=== PATIENT | male | born 1950 | race Caucasian/White ===

== ENCOUNTER 2017-11-04 13:14 | Inpatient (IN) | payer MEDICARE ==
[2017-11-04] VITALS (7 sets, daily range): BP systolic 142–179; BP diastolic 69–87; PULSE 84–90; RESP 18–20; TEMP 97–98.4; O2SAT 93–97
[~2017-11-04] VITALS: Ht 188 cm; Wt 119.8 kg
[2017-11-04] MEDS ORDERED: SODIUM CHLORIDE 0.9% FLUSH 10 ML FLUSH IVF PRN (13:30)
[2017-11-04] MEDS ORDERED: NOVOLOGMXP SQ (13:41)
[2017-11-04] MEDS ORDERED: METF1000 PO (13:41)
[2017-11-04] MEDS ORDERED: LISI-519 PO (13:41)
[2017-11-04] MEDS ORDERED: NOVOINJ2 SQ (13:41)
[2017-11-04] MEDS ORDERED: PRAV10TA PO (13:41)
[2017-11-04] MEDS ORDERED: OMEP20TA93 PO (13:41)
[2017-11-04] MEDS ORDERED: GLIM1TAB PO (13:41)
[2017-11-04 13:43] LABS: AUTOMATED NEUTROPHIL # 5.2 TH/MM3 (1.8-7.7); BASOPHIL % 0.6 % (0.0-2.0); EOSINOPHIL # 0.1 TH/MM3 (0-0.4); EOSINOPHIL % 1.4 % (0.0-4.0); HEMATOCRIT 40.8 % (39.0-51.0); HEMOGLOBIN 13.6 GM/DL (13.0-17.0); LYMPH % 24.8 % (9.0-44.0); LYMPHOCYTE # 1.9 TH/MM3 (1.0-4.8); MEAN CELL VOLUME 86.6 FL (80.0-100.0); MEAN CORPUSCULAR HGB CONC 33.5 % (32.0-36.0); MEAN PLATELET VOLUME 7.6 FL (7.0-11.0); MONO % 7.1 % (0.0-8.0); MONOCYTE # 0.6 TH/MM3 (0-0.9); NEUT % 66.1 % (16.0-70.0); PLATELET COUNT 249 TH/MM3 (150-450); RED BLOOD COUNT 4.71 MIL/MM3 (4.50-5.90); RED CELL DISTRIBUTION WIDTH 12.7 % (11.6-17.2); WHITE BLOOD COUNT 7.8 TH/MM3 (4.0-11.0)
--- NOTE | 2017-11-04 13:48 | PD ---
HPI . Left-sided weakness Chief Complaint: Neuro Symptoms/ Deficits Time Seen by Provider: 13:22 Travel History International Travel<30 days: No Contact w/Intl Traveler<30days: No Traveled to known affect area: No History of Present Illness HPI Patient presents with chief complaint of left-sided weakness. Onset was one to 2 days ago. I see noticed some arm weakness 2 days ago and left leg and facial weakness yesterday. Denies headache. He denies blurred vision. He denies any nausea. He states that he had a prostate biopsy 2 days ago and that the left arm numbness started after the biopsy. He subsequently noted left leg weakness. He attributed the weakness to a combination of diabetic neuropathy and anesthesia. Or, his symptoms have persisted so he contacted his doctor. He was instructed to come here for evaluation of possible stroke. His symptoms are mild with no modifying factors. PFSH Past Medical History Cancer: Yes (PROSTRATE) High Cholesterol: Yes Diabetes: Yes Patient Takes Glucophage: Yes GERD: Yes Hypertension: Yes Medical other: Yes (PROSTRATE BIOPSY 11/02/17) Radiation Therapy: Yes Tetanus Vaccination: Unknown Influenza Vaccination: No Past Surgical History Eye Surgery: Yes Tonsillectomy: Yes Social History Alcohol Use: No Tobacco Use: No Substance Use: No Allergies-Medications (Allergen,Severity, Reaction): Coded Allergies: No Known Allergies (Unverified , 11/04/17) Reported Meds & Prescriptions Reported Meds & Active Scripts Active Reported Pravastatin 10 Mg Tab 10 Mg PO DAILY Omeprazole 20 Mg Tab 20 Mg PO DAILY Lisinopril 5 Mg Tab 5 Mg PO DAILY Glimepiride 1 Mg Tab 1 Mg PO DAILY Take with breakfast or first main meal Novolog Mix 70-30 Inj (Insulin Aspart Prota 70%/Aspart 30%) 1,000 Unit/10 Ml Vial 36 Units SQ BID Metformin (Metformin HCl) 1,000 Mg Tab 1,000 Mg PO BIDPC Review of Systems Except as stated in HPI: all other systems reviewed are Neg Eyes: No: Blurred Vision HENT: No: Headaches Cardiovascular: No: Chest Pain or Discomfort Gastrointestinal: No: Nausea, Vomiting Neurologic: Positive: Weakness, Focal Abnormalities, Paresthesia, No: Coordination Problem, Headache, Change in Mentation, Slurred Speech Physical Exam Narrative GENERAL: Awake and alert and in no acute distress. SKIN: warm/dry. Normal color and turgor. HEAD: Normocephalic. Atraumatic. EYES: Pupils equal and round. No scleral icterus. No injection or drainage. ENT: No nasal bleeding or discharge. Mucous membranes pink and moist. NECK: Trachea midline. Full range of motion without pain.. CARDIOVASCULAR: Irregular rhythm, normal rate he has a sinus arrhythmia on the monitor. RESPIRATORY: No accessory muscle use. Clear to auscultation. Breath sounds equal bilaterally. GASTROINTESTINAL: Abdomen soft. Nontender. Bowel sounds present. Nondistended. MUSCULOSKELETAL: No obvious deformities. NEUROLOGICAL: Awake and alert. No obvious cranial nerve deficits. No weakness on wrinkling his brow, closing his eyes, protruding his tongue or smiling. Designer strengths are full and equal. Pronator drift is negative. He is able to lift both legs against gravity and pressure. Strength appears equal. Babinski is negative bilaterally. Normal speech. PSYCHIATRIC: Appropriate mood and affect; insight and judgment normal. Data Data Last Documented VS Vital Signs Date Time Temp Pulse Resp B/P (MAP) Pulse Ox O2 Delivery O2 Flow Rate FiO2 11/04/17 14:11 88 18 174/86 (115) 96 Room Air 11/04/17 13:23 98.4 Orders Orders Electrocardiogram (11/04/17 13:23) Prothrombin Time / Inr (Pt) (11/04/17 13:23) Act Partial Throm Time (Ptt) (11/04/17 13:23) Complete Blood Count With Diff (11/04/17 13:23) Basic Metabolic Panel (Bmp) (11/04/17 13:23) Troponin I (11/04/17 13:23) Ct Brain W/O Iv Contrast(Rout) (11/04/17 13:23) Chest, Single Ap (11/04/17 13:23) Ecg Monitoring (11/04/17 13:23) Iv Access Insert/Monitor (11/04/17 13:23) Oximetry (11/04/17 13:23) Sodium Chloride 0.9% Flush (Ns Flush) (11/04/17 13:30) Aspirin Chew (Aspirin Chew) (11/04/17 14:15) Mri Brain W&W/O Contrast (11/04/17 14:05) Mra Carotids W Contrast (11/04/17 14:05) Admit Order (Ed Use Only) (11/04/17 ) Manager [employer] / Telemetry DESIREE.Q8H (11/04/17 14:36) Vital Signs (Adult) Q4H (11/04/17 14:36) Diet Heart Healthy (11/04/17 Dinner) Activity Oob With Assistance (11/04/17 14:36) Notify Dr: Other (11/04/17 14:36) Labs Laboratory Tests Test 11/04/17 13:30 White Blood Count 7.8 TH/MM3 Red Blood Count 4.71 MIL/MM3 Hemoglobin 13.6 GM/DL Hematocrit 40.8 % Mean Corpuscular Volume 86.6 FL Mean Corpuscular Hemoglobin 29.0 PG Mean Corpuscular Hemoglobin Concent 33.5 % Red Cell Distribution Width 12.7 % Platelet Count 249 TH/MM3 Mean Platelet Volume 7.6 FL Neutrophils (%) (Auto) 66.1 % Lymphocytes (%) (Auto) 24.8 % Monocytes (%) (Auto) 7.1 % Eosinophils (%) (Auto) 1.4 % Basophils (%) (Auto) 0.6 % Neutrophils # (Auto) 5.2 TH/MM3 Lymphocytes # (Auto) 1.9 TH/MM3 Monocytes # (Auto) 0.6 TH/MM3 Eosinophils # (Auto) 0.1 TH/MM3 Basophils # (Auto) 0.0 TH/MM3 CBC Comment DIFF FINAL Differential Comment Prothrombin Time 10.0 SEC Prothromb Time International Ratio 1.0 RATIO Activated Partial Thromboplast Time 31.4 SEC Blood Urea Nitrogen 10 MG/DL Creatinine 0.97 MG/DL Random Glucose 189 MG/DL Calcium Level 8.7 MG/DL Sodium Level 138 MEQ/L Potassium Level 4.9 MEQ/L Chloride Level 102 MEQ/L Carbon Dioxide Level 30.5 MEQ/L Anion Gap 6 MEQ/L Estimat Glomerular Filtration Rate 77 ML/MIN Troponin I LESS THAN 0.02 NG/ML MDM Medical Decision Making Medical Screen Exam Complete: Yes Emergency Medical Condition: Yes Differential Diagnosis Differential diagnosis includes but is not limited to TIA, CVA, brain tumor, migraine, anxiety Narrative Course This patient presents with strokelike symptoms but no demonstrable neurological findings. His symptoms started 2 days ago. CBC & BMP Diagram 11/04/17 13:30 Calcium Level 8.7 Coags are normal. Trop < 0.[address] 2/16/18 1323 Signed Impressions: Service Date/Time: Saturday, November 04, 2017 13:42 - CONCLUSION: 1. No acute intracranial abnormality. Augustin Lehman MD Chest X-Ray 11/04/171322 Signed Impressions: Service Date/Time: Saturday, November 04, 2017 13:33 - CONCLUSION: No acute disease. Alexi Alarcon MD FACR I have ordered aspirin. I have ordered an MRI/MRA of the brain and an MRA carotid arteries. He will need to be admitted for further evaluation and neurological consultation and echocardiogram. Critical Care Narrative Aggregate critical care time was 35 minutes. Time to perform other separately billable procedures was not included in the critical care time. My time did not include minutes spent treating any other patients simultaneously or on activities that did not directly contribute to the patient's treatment. The services I provided to this patient were to treat and/or prevent clinically significant deterioration due to strokelike symptoms I provided critical care services requiring my management, as noted below: Chart data review, documentation time, medication orders and management, vital sign assessments/reviewing monitor data, ordering and reviewing lab tests, ordering and interpreting/reviewing x-rays and diagnostic studies, care of the patient and discussion of the patient with the admitting physicians Diagnosis Primary Impression: Stroke-like symptom Admitting Information Admitting Physician Requests: Admit Condition: Stable Donna Ramirez MD Nov 04, 2017 13:48
--- NOTE | 2017-11-04 13:50 | RADRPT ---
EXAM DATE/TIME: 11/04/2017 13:33 [facility] COMPARISON: No previous studies available for comparison. INDICATIONS : Stroke symptoms. MEDICAL HISTORY : None. SURGICAL HISTORY : None. ENCOUNTER: Initial ACUITY: 1 day PAIN SCORE: 0/10 LOCATION: Bilateral chest FINDINGS: A single view of the chest demonstrates the lungs to be symmetrically aerated without evidence of mas s, infiltrate or effusion. The cardiomediastinal contours are unremarkable. Osseous structures are intact. CONCLUSION: No acute disease. Alexi Alarcon MD FACR on November 04, 2017 at 13:49 Board Certified Radiologist. This report was verified electronically.
[2017-11-04 13:52] LABS: CHLORIDE 102 MEQ/L (98-107); SODIUM (NA) 138 MEQ/L (136-145)
[2017-11-04 13:55] LABS: CALCIUM 8.7 MG/DL (8.5-10.1)
[2017-11-04 13:56] LABS: BICARBONATE 30.5 MEQ/L (21.0-32.0); BLOOD UREA NITROGEN 10 MG/DL (7-18); GLUCOSE,RANDOM 189 MG/DL (74-106)
--- NOTE | 2017-11-04 13:56 | RADRPT ---
EXAM DATE/TIME: 11/04/2017 13:42 [facility] COMPARISON: No previous studies available for comparison. INDICATIONS : Left facial droop. Left arm tingling and numbness. Evaluate for cerebrovascular accident. RADIATION DOSE: 61.29 CTDIvol (mGy) MEDICAL HISTORY : None SURGICAL HISTORY : None. ENCOUNTER: Initial ACUITY: 2 days PAIN SCALE: 0/10 LOCATION: cranial TECHNIQUE: Multiple contiguous axial images were obtained of the head. Using automated exposure control and adj ustment of the mA and/or kV according to patient size, radiation dose was kept as low as reasonably a chievable to obtain optimal diagnostic quality images. DICOM format image data is available electro nically for review and comparison. FINDINGS: CEREBRUM: Mild diffuse cerebral volume loss. The ventricles are normal for age. No evidence of midline shift, mass lesion, hemorrhage or acute infarction. No extra-axial fluid collections are seen. POSTERIOR FOSSA: The cerebellum and brainstem are intact. The 4th ventricle is midline. The cerebellopontine angle i s unremarkable. EXTRACRANIAL: The visualized portion of the orbits is intact. Atrophic right globe with calcifications in the anter ior and posterior chambers. SKULL: The calvaria is intact. No evidence of skull fracture. CONCLUSION: 1. No acute intracranial abnormality. Augustin Lehman MD on November 04, 2017 at 13:52 Board Certified Radiologist. This report was verified electronically.
[2017-11-04 14:00] LABS: CREATININE 0.97 MG/DL (0.60-1.30); GLOMERULAR FILTRATION RATE 77 ML/MIN (>89)
[2017-11-04 14:04] LABS: TROPONIN I LESS THAN 0.02 NG/ML (0.02-0.05)
[2017-11-04] MEDS ORDERED: ASPIRIN 81 MG CHEW TAB CHEW ONE (14:15)
[2017-11-04] MEDS ORDERED: GADODIAMIDE PF 287 MG/ML 20 ML VIAL (for RAD MRI) IVCONTRAST ONE (14:39)
[2017-11-04] MEDS ORDERED: ACETAMINOPHEN 325 MG TAB PO PRN (14:45)
[2017-11-04] MEDS ORDERED: SENNOSIDES 8.6 MG TAB PO PRN (14:45)
[2017-11-04] MEDS ORDERED: ONDANSETRON HCL 4 MG/2 ML VIAL IVP PRN (14:45)
[2017-11-04] MEDS ORDERED: LORazepam 2 MG/ML VIAL IV PUSH SCH (14:45)
[2017-11-04] MEDS ORDERED: NALOXONE HCL 0.4 MG/ML AMP IV PUSH PRN (14:45)
[2017-11-04] MEDS ORDERED: SODIUM CHLORIDE 0.9% FLUSH 10 ML FLUSH IV FLUSH PRN (14:45)
[2017-11-04] MEDS ORDERED: DEXTROSE 50% IN WATER 50 ML VIAL(D50) IV PUSH PRN (15:45)
[2017-11-04] MEDS ORDERED: GLUCAGON 1 MG/ML VIAL OTHER PRN (15:45)
--- NOTE | 2017-11-04 16:03 | RADRPT ---
EXAM DATE/TIME: 11/04/2017 15:27 [facility] COMPARISON: No previous studies available for comparison. INDICATIONS : Left sided weakness. MEDICAL HISTORY : Carcinoma, prostate. Diabetes mellitus type 2. SURGICAL HISTORY : Tonsillectomy. ENCOUNTER: Initial ACUITY: 1 day PAIN SCORE: 0/10 LOCATION: cranial Please note a normal MRA of the brain does not entirely exclude the possibility of a small aneurysm, nor the possibility of distal intracranial vessel disease. TECHNIQUE: 3D time of flight MRA was performed. Source images, multiplanar STS MIP, and 3D volume MIP reconstru ctions were reviewed. FINDINGS: Anterior circulation: Distal intracranial internal carotid arteries are patent with flow extending to the middle and anteri or cerebral arteries. Small caliber right A1 segment. There is no evidence for aneurysm, vessel trunc ation or stenosis, and no evidence for vascular malformation. Posterior circulation: Symmetric distal vertebral arteries with flow extending to basilar artery. Right posterior cerebral a rtery is not visualized beyond the origin. Also, a short segment of the left mid to distal [employer] is not visualized. There is no evidence for aneurysm and no evidence for vascular malformation. CONCLUSION: 1. Apparent occlusion of the right [employer] just beyond the origin. 2. Focal nonvisualization of the mid to distal left [employer]. This may be artifactual although a focal sev ere flow-limiting stenosis or less likely occlusion cannot be entirely excluded. 3. Hypoplastic right A1 segment. Otherwise, no significant flow-limiting stenosis or occlusion of the anterior circulation. 4. Consider CTA examination for better evaluation as clinically warranted. Augustin Lehman MD on November 04, 2017 at 15:56 Board Certified Radiologist. This report was verified electronically.
--- NOTE | 2017-11-04 16:44 | RADRPT ---
EXAM DATE/TIME: 11/04/2017 15:27 [facility] COMPARISON: No previous studies available for comparison. INDICATIONS : Left sided weakness. CONTRAST: 20 cc Omniscan (gadodiamide) IV MEDICAL HISTORY : Carcinoma, prostate. Diabetes mellitus type 2. SURGICAL HISTORY : Tonsillectomy. ENCOUNTER: Initial ACUITY: 1 day PAIN SCORE: 0/10 LOCATION: cranial TECHNIQUE: Multiplanar, multisequence MRI of the brain was performed both prior to and following the administrat ion of paramagnetic contrast. FINDINGS: CEREBRUM: The ventricles are normal for age. No evidence of midline shift, mass lesion, hemorrhage or acute in farction. No extraaxial fluid collections are seen. The pituitary gland and suprasellar cistern are normal in configuration. WHITE MATTER: Moderately severe periventricular and scattered deep white matter tract there is increased T2 flair s ignal intensity. POSTERIOR FOSSA: The cerebellum and brainstem are intact. The 4th ventricle is midline. The cerebellopontine angle is unremarkable. The cerebellar tonsils are normal in position. DIFFUSION IMAGING: There are 2 punctate areas of diffusion restriction identified in the medial aspect of the right temp oral lobe and a similar lesion identified centrally in the right occiput. These appear to be decrease d in signal intensity on the ADC maps. EXTRACRANIAL: The visualized portions of the orbits and paranasal sinuses are unremarkable. POST-CONTRAST: No abnormal areas of parenchymal or dural enhancement. No evidence of blood-brain barrier breakdown. CONCLUSION: 1. Moderately severe periventricular and deep white matter tract small vessel ischemic evaluation. 2. In addition, there are 2 punctate areas of true diffusion restriction in the white matter tracts o f the right temporal lobe and right occiput. Findings are characteristic of acute or subacute white m atter infarcts. This may explain current clinical symptoms. Trenton Miller MD on November 04, 2017 at 16:31 Board Certified Radiologist. This report was verified electronically.
--- NOTE | 2017-11-04 16:47 | RADRPT ---
EXAM DATE/TIME: 11/04/2017 15:27 [facility] COMPARISON: No previous studies available for comparison. INDICATIONS : Left sided weakness. CONTRAST: 20 cc Omniscan (gadodiamide) IV MEDICAL HISTORY : Carcinoma, prostate. Diabetes mellitus type 2. SURGICAL HISTORY : Tonsillectomy. ENCOUNTER: Initial ACUITY: 1 day PAIN SCORE: 0/10 LOCATION: neck Percent stenosis is calculated using the diameter of the stenotic region over the diameter of the nor mal distal internal carotid artery. TECHNIQUE: Bolus infused MRA of the extracranial circulation was performed using a neurovascular coil. Post pro cessing was performed including rotating subvolume maximum intensity projections of each carotid ganesh ry, rotating full volume maximum intensity projections of both carotid arteries, sagittal and coronal sliding thin slab reformations of each carotid artery, and left oblique sliding thin slab reformatio n through the aortic arch to include the origin of the arch branch vessels. FINDINGS: AORTIC ARCH: There is a three vessel origin of the great vessels from the aorta. No evidence of ostial narrowing. RIGHT CAROTID: Exam is limited by motion. There is no evidence for hemodynamically significant carotid stenosis. LEFT CAROTID: Limited by motion again no evidence for significant stenosis. VERTEBRALS: Both vertebral arteries are patent. CONCLUSION: Limited by motion, negative for hemodynamically significant carotid stenosis. Alexi Alarcon MD FACR on November 04, 2017 at 16:45 Board Certified Radiologist. This report was verified electronically.
[2017-11-04] MEDS: INSULIN ASPART SUPPLEMENTAL SCALE SQ SCH ×2 (17:00→21:50)
--- NOTE | 2017-11-04 17:19 | HHI.HP ---
[facility] Silvio Zimmer, DO Admission Diagnosis stroke-like symptoms Diagnoses: Chief Complaint: Left hand numbness and trouble walking Travel History International Travel<30 Days: No Contact w/Intl Traveler <30 Da: No Traveled to Known Affected Are: No History of Present Illness This patient is a 67-year-old gentleman with a history of diabetes and hypertension who noticed 2 days ago his left arm and his face became numb post prostate biopsy. Patient says after anesthesia he woke up numb and thought it would wear off and didn't he came to the hospital today. He came and was found to have no obvious cranial nerve defects, his right eye is sclerotic from a childhood accident. Muscle strength is about 4 out of 5 on the left side and he says that maybe normal due to his neuropathy. He had some Ativan for his MRI and had some slurring speech after that his says prior to the Ativan he had no trouble speaking. His images have been done and there appears to be a subacute infarct on his MRI in the right occiput and right temporal lobe Review of Systems Constitutional: DENIES: Diaphoretic episodes, Fatigue, Fever, Weight gain, Weight loss, Chills, Dizziness, Change in appetite, Night Sweats Endocrine: DENIES: Heat/cold intolerance, Polydipsia, Polyuria, Polyphagia Eyes: DENIES: Blurred vision, Diplopia, Eye inflammation, Eye pain, Vision loss , Photosensitivity, Double Vision Ears, nose, mouth, throat: DENIES: Tinnitus, Hearing loss, Vertigo, Nasal discharge, Oral lesions, Throat pain, Hoarseness, Ear Pain, Running Nose, Epistaxis, Sinus Pain, Toothache, Odynophagia Respiratory: DENIES: Apneas, Cough, Snoring, Wheezing, Hemoptysis, Sputum production, Shortness of breath Cardiovascular: DENIES: Chest pain, Palpitations, Syncope, Dyspnea on Exertion , PND, Lower Extremity Edema, Orthopnea, Claudication Gastrointestinal: DENIES: Abdominal pain, Black stools, Bloody stools, Constipation, Diarrhea, Nausea, Vomiting, Difficulty Swallowing, Anorexia Genitourinary: DENIES: Sexual dysfunction, Urinary frequency, Urinary incontinence, Urgency, Hematuria, Dysuria, Nocturia, Penile Discharge, Testicular Pain, Testicular Swelling Musculoskeletal: DENIES: Joint pain, Muscle aches, Stiffness, Joint Swelling, Back pain, Neck pain Integumentary: DENIES: Abnormal pigmentation, Nail changes, Pruritus, Rash Hematologic/lymphatic: DENIES: Bruising, Lymphadenopathy Immunologic/allergic: DENIES: Eczema, Urticaria Neurologic: COMPLAINS OF: Localized weakness, Paresthesias, DENIES: Abnormal gait, Headache, Seizures, Speech Problems, Tremor, Poor Balance Except as stated in HPI: all other systems reviewed are Neg Past Family Social History Past Medical History Diabetes, hypertension, GERD, hyperlipidemia Sleep apnea Past Surgical History Prostate biopsy, eye surgery, tonsillectomy Reported Medications Reviewed in the EMR Allergies: Coded Allergies: No Known Allergies (Unverified , 11/04/17) Active Ordered Medications Reviewed in the EMR Family History Mother had a stroke in her 70s, father of heart failure in his 80s, brother is alive and well Social History Remote tobacco, no alcohol , retired airline industry Physical Exam Vital Signs Vital Signs Date Time Temp Pulse Resp B/P (MAP) Pulse Ox O2 Delivery O2 Flow Rate FiO2 11/04/17 15:17 11/04/17 14:11 88 18 174/86 (115) 96 Room Air 11/04/17 13:28 92 97 11/04/17 13:27 97 Room Air 11/04/17 13:23 98.4 90 18 179/87 (117) 96 Physical Exam GENERAL: This is a well-nourished, well-developed patient, in no apparent distress. SKIN: No rashes, ecchymoses or lesions. Cool and dry. HEAD: Atraumatic. Normocephalic. No temporal or scalp tenderness. EYES: Right eye sclerotic status post childhood injury. Left eye Extraocular motions intact. No scleral icterus. No injection or drainage. ENT: Nose without bleeding, purulent drainage or septal hematoma. Throat without erythema, tonsillar hypertrophy or exudate. Uvula midline. Airway patent. NECK: Trachea midline. No JVD or lymphadenopathy. Supple, nontender, no meningeal signs. CARDIOVASCULAR: Regular rate and rhythm without murmurs, gallops, or rubs. RESPIRATORY: Clear to auscultation. Breath sounds equal bilaterally. No wheezes , rales, or rhonchi. GASTROINTESTINAL: Abdomen soft, non-tender, nondistended. No hepato-splenomegaly , or palpable masses. No guarding. MUSCULOSKELETAL: Extremities without clubbing, cyanosis, or edema. No joint tenderness, effusion, or edema noted. No calf tenderness. Negative Homans sign bilaterally. NEUROLOGICAL: Awake and alert. Cranial nerves II through XII intact. Motor and sensory grossly within normal limits. 4 out of 5 left leg muscle strength, left arm muscle strength otherwise 5 out of 5 right. Normal speech. Laboratory Laboratory Tests Test 11/04/17 13:30 White Blood Count 7.8 Red Blood Count 4.71 Hemoglobin 13.6 Hematocrit 40.8 Mean Corpuscular Volume 86.6 Mean Corpuscular Hemoglobin 29.0 Mean Corpuscular Hemoglobin Concent 33.5 Red Cell Distribution Width 12.7 Platelet Count 249 Mean Platelet Volume 7.6 Neutrophils (%) (Auto) 66.1 Lymphocytes (%) (Auto) 24.8 Monocytes (%) (Auto) 7.1 Eosinophils (%) (Auto) 1.4 Basophils (%) (Auto) 0.6 Neutrophils # (Auto) 5.2 Lymphocytes # (Auto) 1.9 Monocytes # (Auto) 0.6 Eosinophils # (Auto) 0.1 Basophils # (Auto) 0.0 CBC Comment DIFF FINAL Differential Comment Prothrombin Time 10.0 Prothromb Time International Ratio 1.0 Activated Partial Thromboplast Time 31.4 Blood Urea Nitrogen 10 Creatinine 0.97 Random Glucose 189 Calcium Level 8.7 Sodium Level 138 Potassium Level 4.9 Chloride Level 102 Carbon Dioxide Level 30.5 Anion Gap 6 Estimat Glomerular Filtration Rate 77 Troponin I LESS THAN 0.02 Result Diagram: 11/04/17 1330 11/04/17 1330 Imaging Last Impressions Head Magnetic Resonance Angiography 11/04/17 1442 Signed Impressions: Service Date/Time: Saturday, November 04, 2017 15:27 - CONCLUSION: 1. Apparent occlusion of the right UNIX ARCHITECT just beyond the origin. 2. Focal nonvisualization of the mid to distal left UNIX ARCHITECT. This may be artifactual although a focal severe flow-limiting stenosis or less likely occlusion cannot be entirely excluded. 3. Hypoplastic right A1 segment. Otherwise, no significant flow-limiting stenosis or occlusion of the anterior circulation. 4. Consider CTA examination for better evaluation as clinically warranted. Augustin Lehman MD Neck Magnetic Resonance Angiography 11/04/17 1405 Signed Impressions: Service Date/Time: Saturday, November 04, 2017 15:27 - CONCLUSION: Limited by motion, negative for hemodynamically significant carotid stenosis. Alexi Alarcon MD FACR Brain MRI 11/04/17 1405 Signed Impressions: Service Date/Time: Saturday, November 04, 2017 15:27 - CONCLUSION: 1. Moderately severe periventricular and deep white matter tract small vessel ischemic evaluation. 2. In addition, there are 2 punctate areas of true diffusion restriction in the white matter tracts of the right temporal lobe and right occiput. Findings are characteristic of acute or subacute white matter infarcts. This may explain current clinical symptoms. Trenton Miller MD Head CT 11/04/17 0401 Signed Impressions: Service Date/Time: Saturday, November 04, 2017 13:42 - CONCLUSION: 1. No acute intracranial abnormality. Augustin Lehman MD Chest X-Ray 11/04/171322 Signed Impressions: Service Date/Time: Saturday, November 04, 2017 13:33 - CONCLUSION: No acute disease. Alexi Alarcon MD FACR Septic Shock Reassessment Septic shock perfusion: reassessment completed Caprini VTE Risk Assessment Caprini VTE Risk Assessment: Mod/High Risk (score >= 2) Caprini Risk Assessment Model Point Value = 1 Point Value = 2 Point Value = 3 Point Value = 5 Age 41-60 Minor surgery BMI > 25 kg/m2 Swollen legs Varicose veins or History of unexplained or recurrent spontaneous Oral contraceptives or hormone replacement Sepsis (< 1 month) Serious lung disease, including pneumonia (< 1 month) Abnormal pulmonary function Acute myocardial infarction Congestive heart failure (< 1 month) History of inflammatory bowel disease Medical patient at bed rest Age 61-74 Arthroscopic surgery Major open surgery (> 45 min) Laparoscopic surgery (> 45 min) Malignancy Confined to bed (> 72 hours) Immobilizing plaster cast Central venous access Age >= 75 History of VTE Family history of VTE Factor V Leiden Prothrombin [id number] Lupus anticoagulant Anticardiolipin antibodies Elevated serum homocysteine Heparin-induced thrombocytopenia Other congenital or acquired thrombophilia Stroke (< 1 month) Elective arthroplasty Hip, pelvis, or leg fracture Acute spinal cord injury (< 1 month) Prophylaxis Regimen Total Risk Factor Score Risk Level Prophylaxis Regimen 0-1 Low Early ambulation 2 Moderate Order ONE of the following: *Sequential Compression Device (SCD) *Heparin 5000 units SQ BID 3-4 Higher Order ONE of the following medications: *Heparin 5000 units SQ TID *Enoxaparin/Lovenox 40 mg SQ daily (WT < 150 kg, CrCl > 30 mL/min) *Enoxaparin/Lovenox 30 mg SQ daily (WT < 150 kg, CrCl > 10-29 mL/min) *Enoxaparin/Lovenox 30 mg SQ BID (WT < 150 kg, CrCl > 30 mL/min) AND/OR *Sequential Compression Device (SCD) 5 or more Highest Order ONE of the following medications: *Heparin 5000 units SQ TID (Preferred with Epidurals) *Enoxaparin/Lovenox 40 mg SQ daily (WT < 150 kg, CrCl > 30 mL/min) *Enoxaparin/Lovenox 30 mg SQ daily (WT < 150 kg, CrCl > 10-29 mL/min) *Enoxaparin/Lovenox 30 mg SQ BID (WT < 150 kg, CrCl > 30 mL/min) AND *Sequential Compression Device (SCD) Assessment and Plan Problem List: (1) Stroke-like symptom ICD Code: R29.90 - Unspecified symptoms and signs involving the nervous system Status: Acute Plan: Patient appears to have acute right sided infarct Continue with atorvastatin, follow up with neurology (2) DM2 (diabetes mellitus, type 2) ICD Code: E11.9 - Type 2 diabetes mellitus without complications Plan: Continue with diabetic diet, insulin per sliding scale and home regimen Metformin held (3) HTN (hypertension) ICD Code: I10 - Essential (primary) hypertension Plan: Currently controlled, continue patient's lisinopril Code Status full code Nanette Bermudez MD Nov 04, 2017 17:19
[2017-11-04] MEDS: RESP: ALBUTEROL 2.5 MG/IPRATROPIUM 0.5 MG NEB (SCH) NEB (20:20)
[2017-11-04] MEDS: SODIUM CHLORIDE 0.9% FLUSH 10 ML FLUSH IV FLUSH SCH (21:52)
[2017-11-04] MEDS: INSULIN ASPAR PROT 70/30 1,000 UNITS/10 ML VIAL SQ SCH (22:19)
[2017-11-05] VITALS: BP 130/58; PULSE 75; RESP 20; TEMP 97.8; O2SAT 94
[2017-11-05 04:00] VITALS: BP 134/89; PULSE 79; RESP 20; TEMP 96.2; O2SAT 94
[2017-11-05] MEDS: RESP: ALBUTEROL 2.5 MG/IPRATROPIUM 0.5 MG NEB (SCH) NEB ×2 (07:48→14:47)
[2017-11-05] MEDS: INSULIN ASPART SUPPLEMENTAL SCALE SQ SCH (07:54)
[2017-11-05] MEDS ORDERED: GLIMEPIRIDE 1 MG TAB PO SCH (08:00)
[2017-11-05] MEDS: SODIUM CHLORIDE 0.9% FLUSH 10 ML FLUSH IV FLUSH SCH (08:36)
[2017-11-05] MEDS: INSULIN ASPAR PROT 70/30 1,000 UNITS/10 ML VIAL SQ SCH (08:53)
[2017-11-05] MEDS ORDERED: CIPR250T2 PO (08:57)
[2017-11-05] MEDS ORDERED: CLOPIDOGREL 75 MG TAB PO SCH (09:00)
[2017-11-05] MEDS ORDERED: SODIUM CHLORIDE 0.9% FLUSH 10 ML FLUSH IV FLUSH PRN (09:00)
[2017-11-05] MEDS ORDERED: SODIUM CHLORIDE 0.9% FLUSH 10 ML FLUSH IV FLUSH SCH (09:00)
[2017-11-05] MEDS ORDERED: PANTOPRAZOLE SOD 20 MG DELAYED RELEASE TAB PO SCH (09:00)
[2017-11-05] MEDS ORDERED: LISINOPRIL 5 MG TAB PO SCH (09:00)
[2017-11-05] MEDS ORDERED: DEXTROSE 50% IN WATER 50 ML VIAL(D50) IV PUSH PRN (09:00)
[2017-11-05] MEDS ORDERED: GLUCAGON 1 MG/ML VIAL OTHER PRN (09:00)
[2017-11-05] MEDS ORDERED: ASPIRIN 325 MG TAB PO SCH ×2 (09:00→09:15)
[2017-11-05] MEDS ORDERED: CIPROFLOXACIN 250 MG TAB PO SCH (09:15)
[2017-11-05 09:30] VITALS: BP 183/96; PULSE 92; RESP 16; TEMP 97.4; O2SAT 93
[2017-11-05] MEDS ORDERED: IOHEXOL 350 MG/ML 10 ML VIAL (for RAD DIAG) IVCONTRAST ONE (09:45)
[2017-11-05] MEDS ORDERED: PNEUMOCOCCAL POLYVALENT INJ 25 MCG/0.5 ML SYR IM ONE (10:00)
[2017-11-05] MEDS ORDERED: INFLUENZA VIRUS VACCINE (QUADRIVALENT) 0.5 ML SYR IM ONE (10:00)
--- NOTE | 2017-11-05 10:18 | RADRPT ---
EXAM DATE/TIME: 11/05/2017 09:26 [facility] COMPARISON: MRA BRAIN W/O CONTRAST, November 04, 2017, 15:27. INDICATIONS : CVA, rule out basilar artery thrombosis. IV CONTRAST: 75 cc Omnipaque 350 (iohexol) IV ; Cumulative dose for multiple exams. RADIATION DOSE: 42.26 CTDIvol (mGy) ; Combined studies MEDICAL HISTORY : Hypertension. Diabetes mellitus type 2. Carcinoma, prostate. SURGICAL HISTORY : None. ENCOUNTER: Initial ACUITY: 1 day PAIN SCALE: 0/10 LOCATION: cranial TECHNIQUE: Volumetric scanning was performed using a multi-row detector CT scanner. The data was post processed with a variety of visualization algorithms including full volume maximum intensity projection, multi -planar sliding thin slab reformation, curved planar reformation, and surface rendering techniques. Using automated exposure control and adjustment of the mA and/or kV according to patient size, radiat ion dose was kept as low as reasonably achievable to obtain optimal diagnostic quality images. DICO M format image data is available electronically for review and comparison. FINDINGS: There is good visualization of the major intracranial arteries out to the second-order branch vessels . There is no evidence for aneurysm. The A1 and M1 segments are patent bilaterally. There is good vi sualization of the anterior most rib vessels which are patent. The basilar artery is patent throughou t its extent. There appear to be some small focal areas of narrowing and/or stenosis involving the pr oximal to mid right posterior cerebral artery. However the right posterior cerebral artery appears to be patent. There is mild irregularity without stenosis involving the left posterior cerebral artery. No evidence of AV malformation.. CONCLUSION: 1. There is some mild focal areas of narrowing/stenosis involving the proximal to mid right posterior cerebral artery. The right posterior cerebral artery is patent. 2. There is some irregularity involving the left posterior cerebral artery suggestive of atherosclero tic changes. The left posterior cervical artery is patent. 3. The basilar artery is patent. 4. No focal occlusion is seen. Jc Wyman MD on November 05, 2017 at 10:11 Board Certified Radiologist. This report was verified electronically.
--- NOTE | 2017-11-05 10:40 | RADRPT ---
EXAM DATE/TIME: 11/05/2017 09:26 [facility] COMPARISON: No previous studies available for comparison. INDICATIONS : CVA. Rule out vertebral dissection. IV CONTRAST: 75 cc Omnipaque 350 (iohexol) IV ; Cumulative dose for multiple exams. RADIATION DOSE: 42.26 CTDIvol (mGy) ; Combined studies MEDICAL HISTORY : Hypertension. Diabetes mellitus type 2. Carcinoma, prostate. SURGICAL HISTORY : None. ENCOUNTER: Initial ACUITY: 1 day PAIN SCALE: 0/10 LOCATION: neck Elevated flow velocities and ICA/CCA ratios have been found to correlate with increased degrees of vessel stenosis, calculated as percentage of diameter relative to a normal segment of distal ICA/CCA. TECHNIQUE: Volumetric scanning was performed using a multirow detector CT scanner. The data was post processed with a variety of visualization algorithms including full-volume maximum intensity projection, multip lanar sliding thin-slab reformation, curved-planar reformation, and surface-rendering techniques. Us ing automated exposure control and adjustment of the mA and/or kV according to patient size, radiatio n dose was kept as low as reasonably achievable to obtain optimal diagnostic quality images. DICOM f ormat image data is available electronically for review and comparison. FINDINGS: AORTIC ARCH: There is a three-vessel origin of the great vessels from the aorta. No evidence of ostial narrowing. There are some calcified plaques along the arch of the aorta. RIGHT CAROTID: The common carotid artery is intact. There is some calcified plaquing at the origin of the right inte rnal carotid artery. However, no focal high-grade stenosis is seen. The external carotid artery is pa tent.. LEFT CAROTID: The common carotid artery is intact. There is calcified plaquing at the origin of the left internal c arotid artery. However, no focal high-grade stenosis is seen. There is some mild narrowing at the olivia gin the left internal carotid artery. The external carotid artery is patent.. VERTEBRALS: The vertebral arteries are patent. The right vertebral artery is dominant.. No stenotic lesions are seen. No evidence of occlusion. No evidence of dissection. CONCLUSION: 1. No evidence of occlusion or dissection of the vertebral arteries. 2. Atherosclerotic changes are noted in the thoracic aortic arch and at both carotid bifurcations. Ho wever, no focal high-grade stenosis is demonstrated. Jc Wyman MD on November 05, 2017 at 10:32 Board Certified Radiologist. This report was verified electronically.
[2017-11-05] MEDS ORDERED: INSULIN ASPART SUPPLEMENTAL SCALE SQ SCH (12:00)
[2017-11-05] MEDS ORDERED: ASPI-183 PO ×2 (12:03→12:04)
[2017-11-05] MEDS ORDERED: ASA325 PO (13:02)
[2017-11-05] MEDS ORDERED: ATOR40TA16 PO (13:02)
--- NOTE | 2017-11-05 13:02 | HHI.DCPOC ---
Discharge Care Plan Diagnosis: (1) CVA (cerebral vascular accident) (2) DM2 (diabetes mellitus, type 2) (3) HTN (hypertension) Goals to Promote Your Health * To prevent worsening of your condition and complications * To maintain your health at the optimal level Directions to Meet Your Goals Take your medications as prescribed Follow your dietary instruction Follow activity as directed Keep your appointments as scheduled Take your immunizations and boosters as scheduled If your symptoms worsen call your PCP, if no PCP go to Urgent Care Center or Emergency Room Smoking is Dangerous to Your Health. Avoid second hand smoke Call the 24-hour hour crisis hotline for domestic abuse at Nanette Bermudez MD Nov 05, 2017 13:02
--- NOTE | 2017-11-05 13:04 | HHI.DS ---
Discharge Summary Admission Date Nov 04, 2017 at 17:18 Discharge Date: Nov 05, 2017 Admitting Diagnosis stroke-like symptoms (1) Stroke-like symptom ICD Code: R29.90 - Unspecified symptoms and signs involving the nervous system Status: Acute (2) DM2 (diabetes mellitus, type 2) ICD Code: E11.9 - Type 2 diabetes mellitus without complications (3) HTN (hypertension) ICD Code: I10 - Essential (primary) hypertension Procedures none Brief History - From Admission This patient is a 67-year-old gentleman with a history of diabetes and hypertension who noticed 2 days ago his left arm and his face became numb post prostate biopsy. Patient says after anesthesia he woke up numb and thought it would wear off and didn't he came to the hospital today. He came and was found to have no obvious cranial nerve defects, his right eye is sclerotic from a childhood accident. Muscle strength is about 4 out of 5 on the left side and he says that maybe normal due to his neuropathy. He had some Ativan for his MRI and had some slurring speech after that his says prior to the Ativan he had no trouble speaking. His images have been done and there appears to be a subacute infarct on his MRI in the right occiput and right temporal lobe CBC/BMP: 11/04/17 1330 11/04/17 1330 Significant Findings Laboratory Tests Test 11/04/17 13:30 11/05/17 08:15 Activated Partial Thromboplast Time 31.4 SEC (24.3-30.1) Random Glucose 189 MG/DL (74-106) Estimat Glomerular Filtration Rate 77 ML/MIN (>89) Troponin I LESS THAN 0.02 NG/ML Erythrocyte Sedimentation Rate 23 mm/hr (0-20) Imaging Last Impressions Neck CTA 11/05/17 0000 Signed Impressions: Service Date/Time: Sunday, November 05, 2017 09:26 - CONCLUSION: 1. No evidence of occlusion or dissection of the vertebral arteries. 2. Atherosclerotic changes are noted in the thoracic aortic arch and at both carotid bifurcations. However, no focal high-grade stenosis is demonstrated. Jc Wyman MD Head CTA 11/05/17 0000 Signed Impressions: Service Date/Time: Sunday, November 05, 2017 09:26 - CONCLUSION: 1. There is some mild focal areas of narrowing/stenosis involving the proximal to mid right posterior cerebral artery. The right posterior cerebral artery is patent. 2. There is some irregularity involving the left posterior cerebral artery suggestive of atherosclerotic changes. The left posterior cervical artery is patent. 3. The basilar artery is patent. 4. No focal occlusion is seen. Jc Wyman MD Head Magnetic Resonance Angiography 11/04/17 1442 Signed Impressions: Service Date/Time: Saturday, November 04, 2017 15:27 - CONCLUSION: 1. Apparent occlusion of the right WEBLOGIC DEVELOPER just beyond the origin. 2. Focal nonvisualization of the mid to distal left WEBLOGIC DEVELOPER. This may be artifactual although a focal severe flow-limiting stenosis or less likely occlusion cannot be entirely excluded. 3. Hypoplastic right A1 segment. Otherwise, no significant flow-limiting stenosis or occlusion of the anterior circulation. 4. Consider CTA examination for better evaluation as clinically warranted. Augustin Lehman MD Neck Magnetic Resonance Angiography 11/04/17 1405 Signed Impressions: Service Date/Time: Saturday, November 04, 2017 15:27 - CONCLUSION: Limited by motion, negative for hemodynamically significant carotid stenosis. Alexi Alarcon MD FACR Brain MRI 11/04/17 1405 Signed Impressions: Service Date/Time: Saturday, November 04, 2017 15:27 - CONCLUSION: 1. Moderately severe periventricular and deep white matter tract small vessel ischemic evaluation. 2. In addition, there are 2 punctate areas of true diffusion restriction in the white matter tracts of the right temporal lobe and right occiput. Findings are characteristic of acute or subacute white matter infarcts. This may explain current clinical symptoms. Trenton Miller MD Head CT 11/04/17 1323 Signed Impressions: Service Date/Time: Saturday, November 04, 2017 13:42 - CONCLUSION: 1. No acute intracranial abnormality. Augustin Lehman MD Chest X-Ray 11/04/17 1323 Signed Impressions: Service Date/Time: Saturday, November 04, 2017 13:33 - CONCLUSION: No acute disease. Alexi Alarcon MD FACR PE at Discharge GENERAL: This is a well-nourished, well-developed patient, in no apparent distress., Right eye sclerosis with ptosis from childhood injury CARDIOVASCULAR: Regular rate and rhythm without murmurs, gallops, or rubs. RESPIRATORY: Clear to auscultation. Breath sounds equal bilaterally. No wheezes , rales, or rhonchi. GASTROINTESTINAL: Abdomen soft, non-tender, nondistended. Normal active bowel sounds MUSCULOSKELETAL: Extremities without clubbing, cyanosis, or edema. NEURO: Alert & Oriented x4 to person, place, time, situation. Moves all ext x4 but there is some residual left-sided weakness and underlying lower extremity bilateral neuropathy Pt update on day of discharge Doing well today. Discharge plans discussed with patient. He is agreeable to evaluation for inpatient rehabilitation Hospital Course This patient is a 67-year-old gentleman with strokelike symptoms surgical procedures. Patient did indeed have a stroke. He is seen and treated for this. *Added as well as atorvastatin replacing his pravastatin. Patient was recommended for inpatient rehabilitation Pt Condition on Discharge: Good Discharge Disposition: Rehab Inpatient Discharge Time: > 30 minutes Discharge Instructions DIET: Follow Instructions for: Heart Healthy Diet Activities you can perform: Regular-No Restrictions Follow up Referrals: Neurology - 3 Weeks with Diego Chowdhury MD PhD New Medications: Atorvastatin (Atorvastatin) 40 Mg Tab 40 MG PO HS for Cholesterol Management, #30 TAB 0 Refills Aspirin (Px Aspirin) 325 Mg Tab 325 MG PO DAILY for cva, #31 TAB Continued Medications: Glimepiride (Glimepiride) 1 Mg Tab 1 MG PO DAILY for Blood Sugar Management, #30 TAB 0 Refills Take with breakfast or first main meal Insulin Aspart Protam-Asp 70-30 Inj (Novolog Mix 70-30 Inj) 1,000 Unit/10 Ml Vial 36 UNITS SQ BID for Blood Sugar Management, #10 ML 0 Refills Lisinopril (Lisinopril) 5 Mg Tab 5 MG PO DAILY for Blood Pressure Management, #30 TAB 0 Refills Metformin (Metformin) 1,000 Mg Tab 1000 MG PO BIDPC for Blood Sugar Management, #60 TAB 0 Refills Omeprazole (Omeprazole) 20 Mg Tab 20 MG PO DAILY, #30 TAB 0 Refills Discontinued Medications: Aspirin (Aspirin) 325 Mg Tab 325 MG PO DAILY, #30 TAB 0 Refills Aspirin (Aspirin) 325 Mg Tab 325 MG PO DAILY, #30 TAB 0 Refills Ciprofloxacin (Ciprofloxacin) 250 Mg Tab 250 MG PO BID for Infection for 3 Days, #6 TAB 0 Refills Pravastatin (Pravastatin) 10 Mg Tab 10 MG PO DAILY for Cholesterol Management, #30 TAB 0 Refills Nanette Bermudez MD Nov 05, 2017 13:04
--- NOTE | 2017-11-05 13:55 | EKG ---
Date Performed: 11/04/2017 Time Performed: 13:28:39 PTAGE: 67 years EKG: Sinus rhythm WITH SINUS ARRHYTHMIA POSSIBLE INFERIOR MYOCARDIAL INFARCTION, AGE UNDETERMINATE BORDERLINE ECG NO PREVIOUS TRACING DOCTOR: Delroy Guerrero Interpretating Date/Time 11/05/2017 13:53:48
--- NOTE | 2017-11-05 14:20 | MB ---
cc: NOEL LOCO M.D. DATE OF CONSULTATION: 11/05/2017. REASON FOR CONSULTATION: Stroke. HISTORY OF PRESENT ILLNESS: Paxton Bermudez is a very nice 67-year-old man who has diabetes. He was in his usual state of health until Tuesday. He underwent a prostate biopsy at the time and noted when he awoke from the anesthesia a sense of numbness which involved the left hand and the left arm. That was on Tuesday. The following day, , he noted some numbness of the left face and then left leg numbness. It was difficult for him to tell the leg numbness however because he has got numbness from a neuropathy anywhere but he did feel it was more pronounced than usual. He has not had any significant weakness of the arm but has felt the leg may have been slightly weak. He denies any visual changes or speech changes. 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 PAST MEDICAL HISTORY: 1. History of diabetes. 2. Recent prostate biopsy. 3. No history of previous stroke or TIA. 4. History of gastroesophageal reflux. 5. Hypertension. 6. Sleep apnea. SOCIAL HISTORY: He denies tobacco use or alcohol use. CURRENT MEDICATIONS: 1. Lisinopril 5 milligrams daily. 2. Protonix 20 milligrams daily. 3. Aspirin 325 milligrams daily started in the hospital. He was not on aspirin previously. 4. He is on Plavix 75 milligrams daily started here in the hospital. 5. Amaryl 1 milligram daily. 6. He takes insulin sliding scale. 7. Zofran PRN. 8. Tylenol PRN. NEUROLOGICAL EXAMINATION: VITAL SIGNS: Blood pressure is 134/89, pulse 79, respirations 20, temperature 96.2 degrees. HIGHER CORTICAL FUNCTIONS: Higher cortical functions are normal including speech. 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 The left eye has normal visual lock. The extraocular movement is intact on the left. He has ptosis on the right which is old from the previous injury. There are no other cranial nerve abnormalities. No facial droop. MOTOR: On motor exam, there is 5/5 strength of all groups in both upper and lower extremities. He has no drift. He has normal fine motor skills. SENSORY: Sensory exam subjectively diminished in the left arm and left leg to soft touch. REFLEXES: Reflexes are 2+ symmetric. IMAGING STUDIES: CT scan of the brain is unremarkable. MRI of the brain is reviewed showing two small areas of restricted diffusion in the right temporal lobe and right occipital area suggestive of acute infarction. No hemorrhage is identified. MRA of the neck - there was motion artifact. It is a limited study but no significant stenosis is identified. MRA brain shows occlusion of the right posterior cerebral artery just beyond the origin left EXPERIMENTAL MACHINIST. Recommend CT angiography. EKGS: EKG showed was normal sinus rhythm. LABORATORY DATA: The white count is 7800, hemoglobin 13.6, hematocrit 40.8% platelet count 249,000. Sodium is 138, potassium 4.9, chloride 102, CO2 30.5, BUN is 10, creatinine 0.97, GFR 77, glucose 189. Lipid panel pending. PT 10, INR 1, APTT 31.4. IMPRESSION: The patient has evidence of two small punctate strokes in the right posterior cerebral artery territory. 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 RECOMMENDATIONS: 1. Would recommend continuing the aspirin 325 milligrams daily. 2. The patient was not on any antiplatelet therapy prior, and I feel that he could be treated currently with monotherapy with aspirin and hold the Plavix unless he would have any recurrent event. 3. Would recommend further evaluation with a CT angiogram, which would visualize the basilar artery to be sure there is no thrombosis in the basilar artery. If there is basilar artery thrombosis, will need to consider more aggressive antiplatelet or anticoagulation. 4. Also continue to monitor cardiac telemetry to rule out atrial fibrillation. 5. Will check an echocardiogram as well. 6. Also follow up on the lipid panel as well. MD STEPHANIE Dumont/ALESSIA /8:52 AM /2:06 PM
[2017-11-05 15:12] LABS: CHOLESTEROL/ HDL RATIO 5.28 RATIO; HDL CHOLESTEROL 38.2 MG/DL (40.0-60.0)
--- NOTE | 2017-11-05 16:18 | HHI.FF ---
Face to Face Verification Diagnosis: (1) CVA (cerebral vascular accident) Physical Therapy Order: Evaluate and Treat, Improve ambulation Occupational Therapy Order: Evaluate and Treat, Gross motor coordination I have seen patient Paxton Bermudez on 11/05/17. My clinical findings support the need for the requested home health care services because: Ltd mobility - disease progression I certify that my clinical findings support that this patient is homebound because: Unsteady gait/balance Nanette Bermudez MD Nov 05, 2017 16:18
--- NOTE | 2017-11-06 16:27 | HM ---
Date Performed: 11/04/2017 Time Performed: 21:01:00 HOOKUP DATE: 11/04/17 09:01:00 PM Fri ANALYSIS START TIME: 11/04/2017 9:06:00 PM ANALYSIS END TIME: 11/05/2017 4:56:15 PM PATIENT AGE: 67 PATIENT HEIGHT: 74 PATIENT WEIGHT: 310 DRUG LIST: ROOM 8307 PATIENT DIAGNOSIS: CVA TEST NARRATIVE: The patient's average heart rate was 86 BPM. No episodes of tachycardia wer e noted. No episodes of bradycardia were noted. No pauses exceeding 2.0 seconds were noted. 253 ventricular ectopics, which represented < 1% of the total beat count, were noted. The highest ve ntricular ectopic frequency occurred from 04:00 PM to 05:00 PM Sat. During this time 29 VE(s) occurr ed. Ventricular ectopics were observed as 249 isolated beat(s) and as 2 couplet(s). No runs were no hay. 53701 supraventricular ectopics, which represented 10% of the total beat count, were noted. The highest supraventricular ectopic frequency occurred from 03:00 PM to 04:00 PM Sat. During this time 626 SVE(s) occurred. In channel 1, a single episode of ST depression (defined as -1.0 mm or more) occurred at 11:56:01 AM Sat with a maximum depression of -1.5 mm. In channel 2, a single episo de of ST depression (defined as -1.0 mm or more) occurred at 11:55:53 AM Sat with a maximum depressio n of -1.4 mm. No episodes of ST depression (defined as -1.0 mm or more) were noted in channel 3. TEST INTERPRETATION: 24 hour holter monitor-Dr. Delroy Guerrero Patient was monitored 19 hours, 50 minutes. Patient is in normal Sinus rhythm , average heart rate of 86 bpm. Minimum heart rate is 61 bpm, maxumum heart rate of 118 bpm, 249 PVCs , 8957 PACs. 51 runs of PACs, the longest being 3 beats. 2 ventricular couplets noted. Maximum heart rate of 118 bpm is in normal sinus rhythm with PACs. Signed by : Delroy Guerrero
== END 2017-11-05 17:11 | disposition home health service (06) | DRG 66 ==
LOC: PHED 13:14 → INTOOBSV 14:38 → PHEDA 14:38 → PH3B 15:20 → OBSVTOIN 17:18
PROVIDERS: ADMIT Hospitalist; ATTEND Hospitalist
DX: I63.531 Cerebral infarction due to unspecified occlusion or stenosis of right posterior cerebral artery (principal); E11.40 Type 2 diabetes mellitus with diabetic neuropathy, unspecified; I10 Essential (primary) hypertension; K21.9 Gastro-esophageal reflux disease without esophagitis; R20.0 Anesthesia of skin; Z79.4 Long term (current) use of insulin
CPT/HCPCS: 70450; 70496; 70498; 70544; 70548; 70553; 71045; 80048; 80061; 82948; 84484; 85025; 85610; 85652; 85730; 93005; 93225; 93226; 94640; 94664; 99291; A9579; G8987-GO; G8988-GO; J1815; J2060; Q9967

== ENCOUNTER 2017-12-28 05:10 | Day surgery (SDC) | payer MEDICARE ==
[~2017-12-28 05:10] MED LIST: ASA325 PO; ATOR40TA16 PO; GLIM1TAB PO; LISI-519 PO; METF1000 PO; NOVOLOGMXP SQ; OMEP20TA93 PO
[2017-12-28] MEDS ORDERED: CLOP75TA PO (05:53)
[2017-12-28] MEDS ORDERED: LISI-515 PO (05:53)
[2017-12-28] MEDS ORDERED: LISI40TA PO (05:53)
[2017-12-28] MEDS ORDERED: PREG25 PO (05:53)
[2017-12-28] MEDS ORDERED: NS 1000 ML IV SCH (06:15)
[2017-12-28] MEDS ORDERED: CHLORHEXIDINE GLUCONATE 2 % 1 PACK (2 CLOTHS) TOPICAL SCH (06:15)
[2017-12-28] MEDS ORDERED: POVIDONE IODINE 5% (ANTISEPSIS KIT) 4 APPLICATIONS EACH NARE SCH (06:15)
[2017-12-28] MEDS ORDERED: MUPIROCIN 2% OINT 1 APPLIC/GM SYR NASAL SCH (06:15)
[2017-12-28] MEDS ORDERED: CEFAZOLIN INJ 2,000 MG in SODIUM CHLORIDE 0.9% INJ 100 ML IV SCH (06:15)
--- NOTE | 2017-12-28 08:00 | MP ---
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 POSTOPERATIVE DIAGNOSIS: Cryptogenic stroke with suspected possible atrial fibrillation. PROCEDURE PERFORMED: Insertion of insertable loop recorder. DESCRIPTION OF PROCEDURE: The procedure was performed in the doc unit under completely sterile conditions using 1% lidocaine for local anesthesia and using standard insertion tool. The [employer] loop recorder was inserted in the standard fashion. Steri-Strip was applied. There were no complications. The device is a [employer] Reveal LINQ, model LNQ11, serial number [id number]. Current R-wave is 1.0 millivolts. The patient will be discharged home in a short period of time. Ryder Gaviria MD VEW/DL , 07:42 AM , 08:00 AM
== END 2017-12-28 08:08 | disposition home or self-care (01) ==
LOC: HDOC 05:10 → HDIC 05:10 → HDOC 08:08
PROVIDERS: ATTEND Internal Medicine Cardiovascular Disease
DX: I63.9 Cerebral infarction, unspecified (principal); I49.8 Other specified cardiac arrhythmias; I48.92 Unspecified atrial flutter; E78.5 Hyperlipidemia, unspecified; I10 Essential (primary) hypertension; E11.43 Type 2 diabetes mellitus with diabetic autonomic (poly)neuropathy; K31.84 Gastroparesis; K22.70 Barrett's esophagus without dysplasia; G47.30 Sleep apnea, unspecified; Z79.4 Long term (current) use of insulin; Z86.010 Personal history of colon polyps
CPT/HCPCS: 33282; C1764